=== PATIENT | female | born 1950 | race Caucasian/White ===

== ENCOUNTER → 2017-06-30 | Outpatient (CLI) | payer OTHER ==
[~2017-06-30] MED LIST: ALBU90OI INH; ASPI81CH PO; LEVSOD50; LOSA25; MULT50L; PARO20; Pepcid20 MG PO; Vitamin C100 M1; Vitamin E100 UNIT
== END | disposition home or self-care (01) ==
LOC: PLD 08:41 → LAB SHORT 08:41
DX: D22.61 Melanocytic nevi of right upper limb, including shoulder (principal)
CPT/HCPCS: 88305

== ENCOUNTER → 2024-02-10 | Outpatient (CLI) | payer OTHER ==
[2024-02-11 12:31] LABS: Stool Occult Bld Immuno 1 Negative (NEGATIVE)
== END ==
LOC: LAB 18:00 → LAB SHORT 18:00
PROVIDERS: Family Medicine
DX: E61.1 Iron deficiency (principal)
CPT/HCPCS: 82274